=== PATIENT | male | born 1960 | race American Indian/Alaskan Native ===

== ENCOUNTER 2021-01-29 06:03 | Day surgery (SDC) | payer BC ==
[~2021-01-29 06:03] MED LIST: ACETAMINOPHEN 500 MG TAB PO SCH; CELECOXIB 200 MG CAP PO NR; GABAPENTIN 300 MG CAP PO NR; LACTATED RINGERS 1,000 ML IV SCH; MIDAZOLAM 2 MG/2 ML INJ IV NR
[2021-01-29] MEDS ORDERED: BACTERIOSTATIC SODIUM CHLORIDE 0.9% 30 ML VIAL INFILTRATI ONE (06:26)
[2021-01-29] MEDS ORDERED: LIDOCAINE PF 100 MG/5 ML (CARDIAC SYRINGE) IV ONE (06:58)
[2021-01-29] MEDS ORDERED: fentaNYL 100 MCG/2 ML INJ ONE (06:58)
[2021-01-29] MEDS ORDERED: propofoL 200 MG/20 ML VIAL IV ONE (06:59)
[2021-01-29] MEDS ORDERED: KETAMINE/STERILE WATER 50 MG/ML SYRINGE ONE (06:59)
[2021-01-29] MEDS ORDERED: ceFAZolin/STERILE WATER 2 GM/20 ML SYRINGE IV NR (07:00)
[2021-01-29] MEDS ORDERED: LIDOCAINE (1%) 10 MG/1 ML VIAL 20 ML MDV ONE (07:08)
[2021-01-29] MEDS ORDERED: BUPIVACAINE/PF (0.5%) 5 MG/1 ML 30 ML VIAL INFILTRATI ONE ×2 (07:08→08:10)
[2021-01-29] MEDS ORDERED: FAMOTIDINE 20 MG/2 ML INJ IV NR (07:12)
[2021-01-29] MEDS ORDERED: FAMOTIDINE 20 MG/2 ML INJ IV ONE (07:14)
--- NOTE | 2021-01-29 07:24 | Anesthesia Consultation ---
Anesthesia Consult and Med Hx Date of service: 01/29/21 - Airway Anesthetic Teeth Evaluation: Dentures ROM Head & Neck: Adequate Mental/Hyoid Distance: Adequate Mallampati Class: Class III Intubation Access Assessment: Possibly Difficult - Pulmonary Exam CTA: Yes - Cardiac Exam Cardiac Exam: RRR - Pre-Operative Health Status ASA Pre-Surgery Classification: ASA2 Proposed Anesthetic Plan: General - Pulmonary Hx Smoking: Yes (STOPPED 2018) Hx Sleep Apnea: No (JESSI PRE SCREEN HIGH RISK) - Cardiovascular System Hx Hypertension: No - Central Nervous System Hx Back Pain: Yes (LOWER , PAIN WEAKNESS LT ARM SHAE. BEFORE) Hx Psychiatric Problems: No - Hematic Hx Anemia: No Hx Sickle Cell Disease: No - Other Systems Hx Alcohol Use: Yes (OCC.) Hx Substance Use: No Hx Cancer: No
--- NOTE | 2021-01-29 07:24 | Anesthesia Day of Surgery ---
Anesthesia Day of Surgery - Day of Surgery Patient Examined: Yes Patient H&P Reviewed: Yes Patient is NPO: Yes
[2021-01-29] MEDS ORDERED: ePHEDrine SULFATE 50 MG/1 ML INJ ONE (08:08)
[2021-01-29] MEDS ORDERED: SODIUM CHLORIDE 0.9% IRR 1,500 ML BOTTLE IR ONE (08:10)
[2021-01-29] MEDS ORDERED: WATER FOR IRRIG STERILE 1,500 ML BOTTLE IR ONE (08:10)
[2021-01-29] MEDS ORDERED: LIDOCAINE (1%) 10 MG/1 ML VIAL 20 ML MDV INFILTRATI ONE (08:10)
--- NOTE | 2021-01-29 10:50 | Short Stay Summary ---
Short Stay Documentation Date of service: 01/29/21 - History Principal diagnosis: bilaterlal inguinal hernia H&P: obtained from office - Allergies and Medications Current Medications: Allergies No Known Allergies Allergy (Verified 01/25/21 18:23) Home Medications Medication Instructions Recorded Confirmed Last Taken Type Meloxicam 15 mg PO PRN 01/25/21 01/25/21 01/27/21 History One-Daily Multi-Vitamin 1 tab PO DAILY 01/25/21 01/25/21 01/27/21 History Pravastatin 40 mg PO DAILY 01/25/21 01/25/21 01/27/21 History Tylenol /Codeine # 3 tab 1 tab PO Q12HR PRN 01/25/21 01/25/21 01/27/21 History Active Medications Acetaminophen (Acetaminophen 500 Mg Tab) 1,000 mg PO PREOP RENE Stop: 01/29/21 23:59 Last Admin: 01/29/21 06:50 Dose: 1,000 mg Documented by: Cefazolin Sodium (Cefazolin/Sterile Water 2 Gm/20 Ml Syringe) 2 gm IV PREOP NR Stop: 01/29/21 23:00 Gabapentin (Gabapentin 300 Mg Cap) 300 mg PO PREOP NR Stop: 01/29/21 23:59 Last Admin: 01/29/21 06:50 Dose: 300 mg Documented by: Lactated Ringer's (Lactated Ringers) 1,000 mls @ 100 mls/hr IV DIRECT RENE Stop: 01/29/21 23:59 Last Admin: 01/29/21 06:55 Dose: 100 mls/hr Documented by: Midazolam HCl (Midazolam 2 Mg/2 Ml Inj) 2 mg IV PREOP NR Stop: 01/29/21 23:59 Last Admin: 01/29/21 07:15 Dose: 2 mg Documented by: - Brief post op/procedure progress note Date of procedure: 01/29/21 Pre-op diagnosis: bilateral inguinal hernia Post-op diagnosis: other (bilateral inguinal hernia, infraumbilcal incisional hernia) Procedure: Robotic assisted lap lysis of adhesions, repair of bilateral inguinal hernias with mesh, primary repair of incisional hernia Anesthesia: GETA, local, other (ilioinguinal nerve block b/l) Findings: Bilateral direct inguinal hernias containing fat 0.5 cm infraumbilical incisional hernia containing small amount of preperitoneal fat Adhesions from transverse colon and omentum to area of infraumbilical hernia Surgeon: DANISH ROBLES Record Pressman: LINDA STORM Estimated blood loss: minimal Pathology: none Condition: stable - Hospital course Hospital course: Pt observed in PACU and discharged to home in stable condition when criteria met - Disposition Condition at discharge: Good Disposition: 01 HOME / SELF CARE / HOMELESS Short Stay Discharge Plan Activity: other (no heavy lifting) Diet: regular Wound: open to air, per your surgeon's advice Additional Instructions: SEE PRINTED DISCHARGE INSTRUCTIONS Follow up with: RITO BEATTY [Other] - 7 Days DANISH ROBLES DO [Staff Physician] - 14 Days Prescriptions: Gabapentin 300 mg PO BID #6 cap HYDROcodone/APAP 5-325 [[place] 5/325] 1 each PO Q6HR PRN #20 tablet PRN Reason: Pain , Severe (7-10)
--- NOTE | 2021-01-29 11:20 | Post Anesthesia Evaluation ---
- Post Anesthesia Evaluation Patient Participated: Yes Airway Patent: Yes Stable Respiratory Function: Yes Nausea/Vomiting: No Temp > 96.8F: Yes Pain Manageable: Yes Adequeate Hydration: Yes Anesthesia Complications: No
--- NOTE | 2021-01-29 13:57 | Operative Report ---
Operative Report Operative Report: Date of procedure: 01/29/21 Pre-op diagnosis: bilateral inguinal hernia Post-op diagnosis: other (bilateral inguinal hernia, infraumbilcal incisional hernia) Procedure: Robotic assisted lap lysis of adhesions, repair of bilateral inguinal hernias with mesh, primary repair of incisional hernia Anesthesia: GETA, local, other (ilioinguinal nerve block b/l) Findings: Bilateral direct inguinal hernias containing fat 0.5 cm infraumbilical incisional hernia containing small amount of preperitoneal fat Adhesions from transverse colon and omentum to area of infraumbilical hernia Surgeon: DANISH ROBLES DO Grappler: LINDA STORM MD Estimated blood loss: minimal Pathology: none Condition: stable Hospital course: Pt observed in PACU and discharged to home in stable condition when criteria met HPI and indication: Patient is a 60-year-old male who was referred to the surgery clinic for a bulge in the right groin and pain. He was found to have bilateral inguinal hernias on physical exam. It was recommended that the hernias be repaired. I discussed all risk, benefits, alternatives to repair with the patient and questions were answered. The patient was agreeable. Consent obtained for robotic assisted by lateral inguinal hernia repair with mesh. possible open. Procedure in detail: Patient was identified in the preoperative area, take back to operating room placed on operative table in supine position. After anesthesia was induced both arms were tucked and all bony prominences padded appropriately. A Quick catheter was sterilely placed by the circulating nurse. The abdomen and b/l groins were then prepped and draped in usual sterile fashion and a timeout performed. Local anesthetic was infiltrated to skin at the intended incision sites. A supraumbilical incision was made through which a Veress needle was inserted. Veress needle positioning was confirmed using saline drop test and the abdomen insufflated to 15 mmHg. Once the abdomen was insufflated, the Veress needle was removed and a 5 mm Optiview trocar was placed as incision. The abdomen is inspected there was no underlying injury to any of the abdominal structures. Patient was placed in Trendelenburg and the pelvis examined. There were bilatera inguinal hernias. There was also noted that there were dense adhesions from the omentum and mid transverse colon to the anterior abdominal wall just inferior to the umbilicus at the area of her previous laparoscopic incision. At this point, an 8 mm right upper quadrant and left upper quadrant robotic trocars were then placed under direct visualization. Lysis of adhesions was undertaken using EndoShears. The omentum and colon were very carefully dissected from anterior abdominal wall. An additional 5 mm right lower quadrant trocar was placed in order to facilitate safe lysis of adhesions. Once the adhesions were taken down the colon was examined and no injury identified. Hemostasis was very carefully ensured. The abdominal wall was inspected and a tiny 0.5 cm fascial defect was seen at the site. There was a small amount of preperitoneal fat in the hernia which was reduced with the colon. Next, the 5 mm supraumbilical trocar was removed and replaced with a 12 mm balloon trocar under direct visualization. A Ray-Jose was placed into the abdomen. The robot was then docked. A fenestrated bipolar was placed into arm #2 and a monopolar scissor in arm #1. The surgeon was then transferred to the console. First, I created a left sided preperitoneal flap. The peritoneum was scored approximately 5 to 6 cm from the hernia defect. The peritoneum was then incised from the midline to the ASIS. The preperitoneal flap was then developed in an avascular plane. I first defined the medial margin by dissecting to the pubic tubercle. The pubic tubercle was cleared of overlying fatty tissue using blunt dissection. I then created the lateral margin in a similar fashion. Great care was taken to avoid injury to any nerves. There was a direct inguinal hernia and the hernia sac was gently reduced using blunt dissection and transecting cremasteric fibers with electrocautery. During the dissection, the cord structures were identified and protected. The cord structures and vas deferens were visualized throughout the entire dissection. Once the hernia sac was completely reduced, the peritoneal flap was checked for hemostasis. Any john tional cremasteric fibers that were were tenting up the peritoneum were divided. Hemostasis was carefully ensured. I then performed a dissection in the same fashion on the right. The right side also contained a direct hernia with incarcerated fat. The hernias were repaired using large 3D max mesh. First a large right-sided Bard 3D max mesh along with suture material was passed into the abdomen by the pathology assistant surgeon. The mesh was positioned into the preperitoneal flap in the usual fashion. The medial portion of the mesh was sutured to Lanre's ligament using an interrupted 2-0 Vicryl stitch. The lateral aspect of the mesh was sutured to the anterior lateral abdominal wall using a 2-0 Vicryl interrupted stitch. The mesh was seen to lay flat in the pocket with excellent coverage. Next, a large left-sided Bard 3D max mesh along with suture material was passed into the abdomen by the pathology assistant surgeon. The mesh was fashioned and secured in the same way as the right side. There was a small amount of overlap of the meshes in the midline. The peritoneum was then reapproximated using 3-0 running V-Loc stitch x2. The entirety of the mesh was covered with peritoneum. The robot was then undocked and the surgeon scrubbed back in. The remainder of the case was performed laparoscopically. All sharp materials along with a Ray-Jose were removed from the abdomen under direct visualization. The colon and omentum which were reduced and the small hernia were once again examined and no injury or bleeding seen. The 12 mm port was removed and the fascia closed using a interrupted 0 Vicryl stitch. The infraumbilical incisional hernia was repaired primarily using an interrupted 0 Vicryl stitch in the Roberto Rockwell device. The abdomen was then slowly desufflated and the mesh was seen to lay flat in the preperitoneal space. The remaining trocars were removed. Skin incisions were once again infiltrated with local anesthetic. Bilateral ilioinguinal nerve block was also performed with 5 cc of local anesthetic on each side. The skin incisions were approximated with 4-0 Monocryl subcuticular stitches and skin glue. At the end of the case all sponge, instrument, sharp counts were correct x2. Patient was awoken from anesthesia and Quick catheter removed. Both testicles were palpated in the scrotum in anatomic position. The patient was taken to PACU in stable condition.
[2021-01-29] MEDS ORDERED: GLYCOPYRROLATE 0.4 MG/2 ML INJ ONE (15:45)
[2021-01-29] MEDS ORDERED: NEOSTIGMINE 10MG/10 ML INJ MDV ONE (15:45)
[2021-01-29] MEDS ORDERED: ROCURONIUM 50 MG/5 ML INJ IV ONE (15:46)
[2021-01-29] MEDS ORDERED: ONDANSETRON 4 MG/2 ML INJ ONE (15:46)
[2021-01-29] MEDS ORDERED: dexAMETHasone 20 MG/5 ML VIAL ONE (15:46)
[2021-01-29] MEDS ORDERED: PHENYLEPHRINE/NS 1,000 MCG/10 ML SYRINGE (OR USE) IV ONE (15:46)
[2021-01-29] MEDS ORDERED: LACTATED RINGERS 1,000 ML ONE (15:48)
[2021-01-29 20:05] VITALS: BP 146/92
== END 2021-01-29 06:04 | disposition home or self-care (01) ==
LOC: OR 06:03
PROVIDERS: ATTEND Surgery
DX: K40.00 Bilateral inguinal hernia, with obstruction, without gangrene, not specified as recurrent (principal); E78.00 Pure hypercholesterolemia, unspecified; Z87.891 Personal history of nicotine dependence; Z79.899 Other long term (current) drug therapy; Z98.890 Other specified postprocedural states
CPT/HCPCS: 49650; 49654; C1781; J0690; J1100; J2001; J2250; J2370; J2405; J2704; J2710; J3010; J3490; J7120; S2900